=== PATIENT | female | born 1950 | race Caucasian/White ===

== ENCOUNTER → 2017-05-12 | Outpatient (CLI) | payer MEDICARE, OTHER ==
[~2017-05-12] MED LIST: ASPIR 8181 M1 PO; EFFEXOR XR75 MG PO; POTASSIUM20 PO; PROTONIX40 M1 PO; SYNTHROID75 MCG PO; XANAX 0.25 MG0.25 MG PO; ZESTORETIC 10-1 EACH PO
== END ==
LOC: M.CT 12:45
DX: D17.71 Benign lipomatous neoplasm of kidney (principal); M47.896 Other spondylosis, lumbar region; Z90.710 Acquired absence of both cervix and uterus; Z90.49 Acquired absence of other specified parts of digestive tract

== ENCOUNTER 2017-06-18 11:31 | Inpatient (IN) | payer MEDICARE, OTHER ==
[~2017-06-18] VITALS: Ht 160 cm; Wt 69.9 kg
[~2017-06-18 11:31] MED LIST changes: -ASPIR 8181 M1 PO; -EFFEXOR XR75 MG PO; -PROTONIX40 M1 PO; -SYNTHROID75 MCG PO; -XANAX 0.25 MG0.25 MG PO; -ZESTORETIC 10-1 EACH PO
[2017-06-18 11:37] VITALS: BP 130/81
[2017-06-18] MEDS ORDERED: PROTONIX40 M1 PO (11:44)
[2017-06-18] MEDS ORDERED: ZESTORETIC 10-1 EACH PO (11:45)
[2017-06-18] MEDS ORDERED: SYNTHROID75 MCG PO (11:45)
[2017-06-18] MEDS ORDERED: EFFEXOR XR75 MG PO (11:45)
[2017-06-18 12:30] LABS: URINE BILIRUBIN NEGATIVE (Negative); URINE BLOOD NEGATIVE (Negative); URINE CLARITY CLEAR; URINE COLOR YELLOW; URINE GLUCOSE-RANDOM NEGATIVE (Negative); URINE KETONES NEGATIVE (Negative); URINE LEUKOCYTES-REFLEX NEGATIVE (Negative); URINE NITRITE-REFLEX NEGATIVE (Negative); URINE PROTEIN NEGATIVE (Negative); URINE SPECIFIC GRAVITY <= 1.005 (1.005-1.030); URINE UROBILINOGEN 0.2 E.U./dl (0.2-1.0)
[2017-06-18 12:35] LABS: BE 1.2 mmol/L (-2 to +3); PCO2 32.5 mmHg (35.0-45.0); PO2 120.5 mmHg (75.0-100.0); pH 7.486 (7.340-7.450)
[2017-06-18 12:38] LABS: ABSOLUTE EOSINOPHILS 0.1 thou/uL (0.0-0.7); ABSOLUTE LYMPHOCYTES 1.2 thou/uL (0.8-5.3); ABSOLUTE MONOCYTES 0.6 thou/uL (0.0-1.2); ABSOLUTE NEUTROPHILS 6.9 thou/uL (1.6-8.1); BASOPHILS 0.5 %; EOSINOPHILS 1.2 %; HEMATOCRIT 39.9 % (37.0-47.0); HEMOGLOBIN 13.5 gm/dL (12.0-15.0); LYMPHOCYTES 13.3 %; MCH 28.8 pg (26.0-34.0); MCHC 33.8 g/dL (28.0-37.0); MCV 85.2 fL (80.0-100.0); MONOCYTES 7.3 %; MPV 8.5 fl. (7.2-11.1); NUCLEATED RBCS 0 /100WBC; PLATELET COUNT* 185 thou/uL (150-400); POLYS 77.7 %; RBC 4.68 mil/uL (4.20-5.00); RDW-CV 13.7 % (10.5-14.5); WBC 8.9 thou/uL (4.0-11.0)
[2017-06-18 12:51] LABS: ANION GAP 10 mmol/L (7-16); BUN 15 mg/dL (7-18); CALCIUM 9.6 mg/dL (8.5-10.1); CHLORIDE 93 mmol/L (98-107); CO2 31 mmol/L (21-32); CREATININE 0.9 mg/dL (0.6-1.3); GLUCOSE 98 mg/dL (70-99); SODIUM 134 mmol/L (136-145)
[2017-06-18 12:55] LABS: AMP/METHAMP Negative (Negative); BARBITURATES Negative (Negative); BENZODIAZEPINES Negative (Negative); COCAINE Negative (Negative); METHADONE Negative (Negative); OPIATES Negative (Negative); PCP Negative (Negative); THC Negative (Negative)
[2017-06-18 12:57] LABS: ALBUMIN 3.7 g/dL (3.4-5.0); ALKALINE PHOSPHATASE 124 U/L (46-116); NT-PRO BRAIN NAT PEPTIDE 317 pg/mL (<300); SGOT 25 U/L (15-37); SGPT 40 U/L (30-65); TOTAL BILIRUBIN 0.5 mg/dL (<0.1-1.0); TOTAL PROTEIN 7.3 g/dL (6.4-8.2); TROPONIN-I LEVEL <0.06 ng/mL (<0.06)
[2017-06-18 12:58] LABS: POTASSIUM 2.6 mmol/L (3.5-5.1)
[2017-06-18 14:16] VITALS: BP 106/58
[2017-06-18] MEDS ORDERED: POTASSIUM20 PO (14:39)
[2017-06-18] MEDS ORDERED: XANAX 0.25 MG0.25 MG PO (14:39)
--- NOTE | 2017-06-18 18:09 | NUR ---
PT ADMITTED FROM ER WITH SYNCOPE FELL AT HOME AND BROKE CABINET K+ LOW RUNNING IV 10ML/H GOODMAN VEIN BADLY PER PT IV FLUIDS CONT AT 100ML/H C/O HEADACHE ENCOURAGED FLUIDS PT DRINKS DIET COKE MAINLY SBA IV TO RAC NSR ON THE MONITOR PACS AT TIMES PER ER 60S-70S ALERT AND ORIENTED FORGETFUL AT TIMES FAMILY AT BEDSIDE
[2017-06-18 20:20] VITALS: BP 104/57
[2017-06-19] VITALS (7 sets, daily range): BP systolic 95–136; BP diastolic 56–76
--- NOTE | 2017-06-19 03:39 | NUR ---
ASSUMED CARE AT 1999, ASSESSMENT CHARTED. PATIENT ALERT/ORIENTED X4, FORGETFUL AT TIMES, RESTING IN BED WITH FAMILY AT BEDSIDE. UP WITH STANDBY ASSIST. DENIES PAIN OR NEEDS. ORTHOSTATICS PER DAY RN WERE NEGATIVE. BED ALARM ON. REFUSING SCD'S. CALL LIGHT WITHIN REACH, ENCOURAGED TO CALL FOR NEEDS.
[2017-06-19 04:37] LABS: ABSOLUTE EOSINOPHILS 0.2 thou/uL (0.0-0.7); ABSOLUTE MONOCYTES 0.6 thou/uL (0.0-1.2); ABSOLUTE NEUTROPHILS 3.4 thou/uL (1.6-8.1); BASOPHILS 0.6 %; EOSINOPHILS 2.5 %; HEMATOCRIT 36.2 % (37.0-47.0); HEMOGLOBIN 12.3 gm/dL (12.0-15.0); LYMPHOCYTES 32.2 %; MCH 28.8 pg (26.0-34.0); MCHC 34.1 g/dL (28.0-37.0); MCV 84.5 fL (80.0-100.0); MONOCYTES 9.2 %; MPV 8.7 fl. (7.2-11.1); NUCLEATED RBCS 0 /100WBC; PLATELET COUNT* 161 thou/uL (150-400); POLYS 55.5 %; RBC 4.28 mil/uL (4.20-5.00); RDW-CV 13.4 % (10.5-14.5); WBC 6.1 thou/uL (4.0-11.0)
[2017-06-19 05:20] LABS: CALCIUM 8.9 mg/dL (8.5-10.1); CREATININE 0.8 mg/dL (0.6-1.3); MAGNESIUM 1.9 mg/dL (1.8-2.4); POTASSIUM 3.7 mmol/L (3.5-5.1)
--- NOTE | 2017-06-19 13:04 | NUR ---
CM ASSESSMENT: Pt is A&O. Resides at home with her . Supportive family that is involved in POC. No DME. No hx of HH or SNF. Independent with ADLS. No needs anticipated at dc. CM following. Stress test and Echo planned.
--- NOTE | 2017-06-19 14:01 | NUR ---
ASSUMED CARE OF PT AT 0730. PT RESTING IN BED. PT A&0X4, FORGETFUL. PT DENIES ANY PAIN OR SHORTNESS OF BREATH AT THIS TIME. PT NPO FOR CARDIOLOGY CONSULT THIS AM. FAMILY AT BEDSIDE. PT TRACING SR ON THE DIRECTOR OF STUDENT SERVICES. PT ON 1L NC SAT 98%. PT COMPLAINS OF PRODUCTIVE COUGH. SPUTUM NOT OBSERVED. WHEEZES NOTED. IVF. PT UP WITH 1 SBA TO BATHROOM. PT DENIES ANY DIZZINESS WITH AMBULATION. PT GOAL FOR TODAY IS TO BE SEEN BY CARDIOLOGY AND NEUROLOGY AND REMAIN FREE FROM FALLS AND SYNCOPAL EPISODES. AM ASSESSMENT CHARTED. MEDICATIONS PER MAY. PT REPOSITIONS SELF. HOURLY ROUNDING OBSERVED. BED IN LOW POSITION. BED ALARM IN PLACE. FALL PRECAUTIONS IN PLACE. CALL LIGHT WITHIN REACH. WILL CONTINUE PLAN OF CARE.
--- NOTE | 2017-06-19 14:15 | 2DMMODE ---
[place] [address] 2 D/M-MODE ECHOCARDIOGRAM Name: LORELEI ROMERO Room: [address] IN [facility]#: [id number] Admission: 06/18/17 Attend Phys: Joaquín Chris, Discharge: Date of : 54 Date of Service: 06/19/17 1415 Report #: [id number] THIS REPORT FOR: //name// APPROVED REPORT Study performed: 06/19/2017 11:42:16 EXAM: Comprehensive 2D, Doppler, and color-flow Echocardiogram Patient Location: In-Patient Room #: 220 Status: routine BSA: 1.71 HR: 64 bpm BP: 136/76 mmHg Rhythm: NSR Other Information Study Quality: Good Indications Syncope 2D Dimensions LVEF(%): 71.44 (>50%) IVSd: 8.47 (7-11mm) LVOT Diam: 18.45 (18-24mm) LVDd: 41.74 mm PWd: 8.59 (7-11mm) Ascending Ao: 26.78 (22-36mm) LVDs: 24.91 (25-40mm) Aortic Root: 29.24 mm Posey's LVEF: 71.44 % Volumes Left Atrial Volume (Systole) LA ESV Index: 25.00 mL/m2 Aortic Valve AoV Peak Agustín.: 1.56 m/s AO Peak Gr.: 9.71 mmHg LVOT Max P.20 mmHg AO Mean Gr.: 5.53 mmHg LVOT Mean P.02 mmHg LVOT Max V: 1.34 m/s AO V2 VTI: 28.13 cm LVOT Mean V: 0.78 m/s ALAN (VTI): 2.48 cm2 LVOT V1 VTI: 26.04 cm AI Stokes: 2.43 m/s2 AI PHT: 477.56 [place] [address] 2 D/M-MODE ECHOCARDIOGRAM Name: LORELEI ROMERO Room: [address] IN [facility]#: [id number] Admission: 06/18/17 Attend Phys: Joaquín Chris, Discharge: Date of : 54 Date of Service: 06/19/17 1415 Report #: [id number] Mitral Valve E/A Ratio: 1.23 MV Decel. Time: 203.61 ms MV E Max Agustín.: 0.97 m/s MV PHT: 59.05 ms MVA (PHT): 3.73 cm2 TDI E/Lateral E': 8.08 E/Medial E': 8.82 Medial E' Agustín.: 0.11 m/s Lateral E' Agustín.: 0.12 m/s Pulmonary Valve PV Peak Agustín.: 0.80 m/s PV Peak Gr.: 2.56 mmHg Tricuspid Valve TR Peak Gr.: 22.03 mmHg RVSP: 27.00 mmHg Left Ventricle The left ventricle is normal size. There is normal LV segmental wall motion. There is normal left ventricular wall thickness. Left ventricular systolic function is normal. The left ventricular ejection fraction is within the normal range. LVEF is 55-60%. The left ventricular diastolic function is normal. Right Ventricle The right ventricle is normal size. The right ventricular systolic function is normal. Atria The left atrium size is normal. The right atrium size is normal. Aortic Valve Mild aortic valve sclerosis. Mild aortic regurgitation. There is no aortic valvular stenosis. Mitral Valve The mitral valve is normal in structure. Trace mitral regurgitation. No evidence of mitral valve stenosis. Tricuspid Valve The tricuspid valve is normal in structure. Mild tricuspid regurgitation. The RVSP is ___27____ mmHg[place] [address] 2 D/M-MODE ECHOCARDIOGRAM Name: LORELEI ROMERO Room: [address] IN [facility]#: [id number] Admission: 06/18/17 Attend Phys: Joaquín Chris, Discharge: Date of : 54 Date of Service: 06/19/17 1415 Report #: [id number] The pulmonary valve is normal in structure. Mild pulmonic regurgitation. Great Vessels The aortic root is normal in size. IVC is normal in size and collapses with >50% inspiration Pericardium There is no pericardial effusion. <Conclusion> The left ventricle is normal size. There is normal left ventricular wall thickness. Left ventricular systolic function is normal. The left ventricular ejection fraction is within the normal range. LVEF is 55-60%. The left ventricular diastolic function is normal. The right ventricle is normal size. The left atrium size is normal. Mild aortic valve sclerosis. Mild aortic regurgitation. There is no aortic valvular stenosis. The mitral valve is normal in structure. Trace mitral regurgitation. The tricuspid valve is normal in structure. Mild tricuspid regurgitation. The RVSP is ___27____ mmHg. IVC is normal in size and collapses with >50% inspiration There is no pericardial effusion. There is normal LV segmental wall motion. <ELECTRONICALLY SIGNED> By: Jonas Moise MD, FACC 06/19/17 1415 14 141 Jonas Moise MD, FACC /INF
--- NOTE | 2017-06-19 14:44 | EKG ---
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 06/19/17 1444 1141 1141 Jonas Moise MD, FACC /EPI
--- NOTE | 2017-06-19 17:16 | CARDNUC ---
[place] [address] CARDIAC NUCLEAR IMAGING REPORT Name: LORELEI ROMERO Room: [address] IN [facility]#: [id number] Admission: 06/18/17 Attend Phys: Joaquín Chris, Discharge: Date of : 54 Date of Service: 06/19/17 1716 Report #: [id number] THIS REPORT FOR: //name// APPROVED REPORT Study performed: 06/19/2017 09:39:00 Exam: Nuclear Stress Test Indication: Syncope, Chest pain Patient Location: In-Patient Room #: 220 Stress Tech: Luz Agustin Stress Nurse: Ellen Pan RN Ht: 5 ft 3 in Wt: 165 lbs BSA: 1.78 m2 BMI: 29.22 Medical History Medical History: CAD s/p CABG, HTN, Hyperlipidemia Medications: hydralazine Allergies: No known drug allergies Previous Cardiac Procedures: CABG Exercise History: Sedentary Stress Test Details Stress Test: Pharmacologic stress testing performed using 0.4 mg of regadenoson per 5 mL given IV over 10 seconds. Reason for pharmacologic stress test: physical limitation. HR Resting HR: 70 bpm Max Heart Rate (APMHR): 156 bpm Max HR Achieved: 100 bpm Target HR (85% APMHR): 132 bpm % of APMHR: 64 Recovery HR: 92 bpm BP Resting BP: 120/70 mmHg Max BP: 123/61 mmHg ECG Resting ECG: Sinus Rhythm, normal EKG Stress ECG: Sinus Rhythm, normal EKG ST Change: None Arrhythmia: None Recovery ECG: Sinus Rhythm, [place] [address] CARDIAC NUCLEAR IMAGING REPORT Name: LORELEI ROMERO Room: [address]#: [id number] Admission: 06/18/17 Attend Phys: Joaquín Chris, Discharge: Date of : 54 Date of Service: 06/19/17 1716 Report #: [id number] Change: None Recovery Arrhythmia: None Clinical Reason for Termination: Completed protocol Stress Symptoms: None Exercise duration: 0 min sec Exercise capacity: 1.0 METs The patient had no significant symptoms with Lexiscan infusion. Stress ECG Conclusion The baseline 12-lead electrocardiogram showed normal sinus rhythm with no significant ST or T wave abnormalities. EKGs obtained during and post Lexiscan infusion show sinus rhythm with no cement ST or T wave changes when compared to baseline. There were no stress-induced arrhythmias. NM EXAM: Myocardial Perfusion REST/STRESS Imaging Protocol: Rest Tc-99m/Stress Tc-99m 1 day Resting Data Rest SPECT myocardial perfusion imaging was performed in supine position 30 minutes following the intravenous injection of 11.3 mCi of Tc-99m Sestamibi. Time of rest injection: 14:20 Time of rest imagin:50 The images were gated to evaluate regional wall motion and calculate left ventricular ejection fraction. Administration Route: IV Administration Site: Right AC Pharmacologic Stress Pharmacologic stress test was performed by injecting Regadenoson 0.4 mg IV push followed by the intravenous injection of 36.0 mCi of Tc-99m Sestamibi. Time of stress injection: 15:40 Time of stress imagin:35 Administration Route: IV Administration Site: Right AC Heart Rate at time of stress injection: 100 bpm. Gated Stress SPECT was performed 55 minutes after stress injection. The images were gated to evaluate regional wall motion and calculate left [place] [address] CARDIAC NUCLEAR IMAGING REPORT Name: NICKLORELEI Almita Room: [address]#: [id number] Admission: 06/18/17 Attend Phys: Joaquín Chris, Discharge: Date of : 54 Date of Service: 06/19/17 1716 Report #: [id number] Study Quality Study: Good Artifact: No artifact Study Data At rest, the left ventricular ejection fraction was 74%.. Post stress, the left ventricular ejection was 65%.. TID = 1.13. Perfusion Normal left ventricular perfusion. Wall Motion Normal left ventricular wall motion. Nuclear Conclusion ECG Findings: negative for ischemia Clinical Findings: negative for ischemia Nuclear Findings: negative for ischemia Exercise Capacity: not assessed Left Ventricular Function: normal Risk Study: low Myocardial perfusion images show no defect to suggest infarct or ischemia. Left ventricular systolic function was normal on gated studies. This is a low risk study. <Conclusion> The baseline 12-lead electrocardiogram showed normal sinus rhythm with no significant ST or T wave abnormalities. EKGs obtained during and post Lexiscan infusion show sinus rhythm with no cement ST or T wave changes when compared to baseline. There were no stress-induced arrhythmias. <ELECTRONICALLY SIGNED> By: Milan Chou MD, FACC 06/19/17 1716 15 15 Milan Chou MD, FACC /INF
--- NOTE | 2017-06-19 18:33 | NUR ---
Patient stress test negative, echo showed 55-60% ef. MRI and MRA negative for acute changes. Chest xray negative. Patient placed on room air. No acute changes. EEG for 06/20/2017. Patient family requesting GI consult do to history of diarrhea. No stools observed this shift. Hourly rounding observed. Call within reach, bed in low ponsition, bed alerm placed.
--- NOTE | 2017-06-19 18:48 | NUR ---
THIS RN AGREES WITH THE CHARTING AND ASSESSMENT COMPLETED BY BLAYNE NOLEN ON 06/19/17.
[2017-06-20 00:11] VITALS: BP 132/75
[2017-06-20 04:00] VITALS: BP 131/69
--- NOTE | 2017-06-20 05:12 | NUR ---
ASSUMED CARE AT 1999, ASSESSMENT CHARTED. PATIENT ALERT/ORIENTED X4, FORGETFUL AT TIMES, RESTING IN BED WITH FAMILY AT BEDSIDE. UP WITH STANBDY ASSIST TO BATHROOM. DENIES PAIN OR NEEDS. REFUSING SCD'S. MEDS PER MAY. BED ALARM ON. FALL PRECAUTIONS IN PLACE. CALL LIGHT WITHIN REACH, ENCOURAGED TO CALL FOR NEEDS.
--- NOTE | 2017-06-20 05:30 | NUR ---
BED ALARM SOUNDING. PATIENT ATTEMPTING TO GET OUT OF BED, STAFF AT SIDE. PATIENT HANDED STAFF HER BRACELETS, COBAN FROM IV SITE, AND SOCKS. BRACELETS REPLACED. ASSISTED TO BATHROOM AND BACK TO BED. BED ALARM REPLACED. WILL MONITOR.
[2017-06-20 05:33] LABS: ABSOLUTE EOSINOPHILS 0.2 thou/uL (0.0-0.7); ABSOLUTE LYMPHOCYTES 1.7 thou/uL (0.8-5.3); ABSOLUTE MONOCYTES 0.6 thou/uL (0.0-1.2); ABSOLUTE NEUTROPHILS 3.1 thou/uL (1.6-8.1); BASOPHILS 0.3 %; EOSINOPHILS 2.9 %; HEMATOCRIT 32.4 % (37.0-47.0); HEMOGLOBIN 11.2 gm/dL (12.0-15.0); LYMPHOCYTES 30.5 %; MCH 29.2 pg (26.0-34.0); MCHC 34.6 g/dL (28.0-37.0); MCV 84.3 fL (80.0-100.0); MONOCYTES 10.7 %; MPV 8.7 fl. (7.2-11.1); NUCLEATED RBCS 0 /100WBC; PLATELET COUNT* 148 thou/uL (150-400); POLYS 55.6 %; RBC 3.85 mil/uL (4.20-5.00); RDW-CV 13.8 % (10.5-14.5); WBC 5.5 thou/uL (4.0-11.0)
[2017-06-20 05:50] LABS: ALBUMIN 2.9 g/dL (3.4-5.0); CALCIUM 8.5 mg/dL (8.5-10.1); CREATININE 0.8 mg/dL (0.6-1.3); POTASSIUM 3.6 mmol/L (3.5-5.1); TOTAL BILIRUBIN 0.2 mg/dL (<0.1-1.0); TOTAL PROTEIN 5.5 g/dL (6.4-8.2)
[2017-06-20 07:50] LABS: ESR (SEDRATE) 32 mm/hr (0-30)
[2017-06-20 08:00] VITALS: BP 150/63
--- NOTE | 2017-06-20 08:10 | NUR ---
PATIENT RESTED OFF AND ON THROUGH THE NIGHT. BEDSIDE REPORT GIVEN. NOW AT SIDE. BED ALARM ON. WILL MONITOR.
[2017-06-20 09:47] VITALS: BP 131/69
[2017-06-20] MEDS ORDERED: ASPIR 8181 M1 PO (11:07)
--- NOTE | 2017-06-20 12:12 | NUR ---
ASSUMED PATIENT CARE THIS AM. RECEIVED REPORT FROM NURSE. PATIENT IS ALERT ORIENTED X4. VITALS WITHIN NORMAL LIMIT. COMPLIANT OF PAIN LEVEL OF 7 HEADACHE. PAIN MEDICATION TO BE PROVIDED. POSSIBLE DISCHARGE TODAY. PATIENT DOES NOT STATE ANY COMPLAIN BESIDE PAIN. FAMILY MEMBER IS AT BEDSIDE. WILL CONTINUE TO MONITOR
--- NOTE | 2017-06-20 13:13 | NUR ---
PT COMPLAINED OF HEADACHE THIS AM. TREATED WITH PRN TYLENOL WITH RELIEF. PT HAD EEG THIS AM. DISCHARGE ORDERS RECEIVED. DISCHARGE INSTRUCTIONS, CARE NOTES AND FOLLOW UP APPTS GIVEN TO PT. PT COMMUNICATES UNDERSTANDING OF DISCHARGE TEACHING. IV AND VICE PRESIDENT INTEGRATED REMOVED. PT DISCHARGED WITH ALL BELONGINGS AND PAPERWORK VIA WHEELCHAIR AND NURSING STAFF TO SPOUSE OWN PERSONAL VEHICLE.
--- NOTE | 2017-06-20 13:17 | NUR ---
THIS RN AGREES WITH THE CHARTING AND ASSESSMENT COMPLETED BY JADEN PAREKH ON 06/20/17.
--- NOTE | 2017-06-22 19:10 | CON ---
[address] [address] CONSULTATION Name: LORELEI ROMERO Room: [address] IN ..#: [id number] Admission: 06/18/17 Attend Phys: Joaquín Chris MD Discharge: 06/20/17 Date of : 54 Report #: [id number] THIS REPORT FOR: //name// CC: Joaquín [place] DATE OF SERVICE: 06/19/2017 HISTORY OF PRESENT ILLNESS: This is a 66-year-old female patient who was evaluated by me to determine any neurological etiology for the patient's episode of syncope. The patient was apparently doing something in the that felt dizzy and passed out. Throughout this, she was fully conscious. In fact, she was able to talk to the . She had no jerking movements. There was no well-defined postictal period. Blood pressure and pulse was not taken at that time and the did not allow the to call the ambulance. When the blood pressure was taken, it was low. She indicates she does take antihypertensive, but take her blood pressure only every couple of weeks. REVIEW OF SYSTEMS: Indicate that this patient was admitted with hypokalemia. That has improved. She also has some history of palpitation. thinks the memory, especially the short-term memory is deteriorating. She is pretty anxious and takes medication for that. She has always been anxious. She denies any history of stroke, but does have a history of coronary artery disease and had a bypass surgery. She had a prior history of knee surgery. 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 Her last B12 level was 296, which is somewhat on the lower side. She feels back to her baseline and she does not believe that she has any new eye, ENT, respiratory, GI, , musculoskeletal, constitutional, dermatological, hematological, throat, allergic or endocrine symptoms associated with present symptomatology. She does have a history of anxiety and depression as mentioned above. PAST MEDICAL HISTORY: Initially she said is negative for syncope, but then she said she had an MRI done about 2 months ago and that was because of memory, headache. Past medical history is positive for some memory disturbances. FAMILY HISTORY: Negative for early age stroke. SOCIAL HISTORY: She drinks alcohol very rarely and she does not smoke. PHYSICAL EXAMINATION: Indicate she is alert. She is responsive. She is oriented. Her speech, concentration, fund of knowledge and memory is at her baseline. Cranial nerve examination 2-12 looks unremarkable. She has no papilledema. There is no carotid bruit. Her strength, sensation, reflexes and tones are symmetrical. There is no cerebellar sign. No papilledema. She is a reasonably well-developed individual. She does not have any dysmorphic features of eyes, ears and face. Her visions and hearing looks [place] [address] CONSULTATION Name: LORELEI ROMERO Room: [address]#: [id number] Admission: 06/18/17 Attend Phys: Joaquín Chris MD Discharge: 06/20/17 Date of : 54 Report #: [id number] thyroid mass. Cardiac examination clinically does not show any definite abnormality of the heart sounds or murmur. No respiratory difficulty or rhonchi was noticed on either side. Her pulses are palpable. She has no edema, cyanosis or jaundice. Her blood pressure was 121/61, respiration was 14, pulse is 71, temperature is 97.9. She did have a CT scan of the head and carotid Doppler. Carotid Doppler showed mild disease. CT was okay and she did have MRIs in the past, but not at this time. IMPRESSION: I suspect the patient's symptoms were secondary to either cardiac or systemic or both problems. She was markedly hypokalemic and her blood pressure was low. I suspect that is probably the cause of her symptoms. Neurological etiology is considered unlikely, but she is having memory disturbances and had headaches. Because of that, we will do some workup in this patient by repeating the MRI. I will also go ahead and check a sed rate in this patient. Neurological causes are considered unlikely, but these will exclude that. I discussed all of it with the patient and the patient wants to proceed with it. RECOMMENDATIONS: 1. EEG. 2. Sed rate. 3. MRI of the brain. 4. MRA of the head. 5. If this workup is unremarkable, that will make it even less likely that there is any neurological etiology for the patient's symptoms and we should continue to work on finding any systemic cause. Thank you very much for this referral. We will follow this patient with you from tomorrow. <ELECTRONICALLY SIGNED> By: Suleiman Edmonds MD 06/22/17 1910 1423 [id number] Edmonds MD /nt
--- NOTE | 2017-06-22 19:10 | EEG ---
[address] [address] EEG STUDY REPORT Name: LORELEI ROMERO Almita Room: [address] IN .#: [id number] Admission: 06/18/17 Attend Phys: Joaquín Chris MD Discharge: 06/20/17 Date of : 54 Report #: [id number] THIS REPORT FOR: //name// CC: Joaquín Brockbabs DATE OF SERVICE: 06/20/2017 This patient is being evaluated for syncope and the EEG was done by placing the electrodes by standard 10-20 system of electrode placement. Both referential and sequential montages were used for recording. Background activity in this patient's EEG is about 9 Hz and 30 microvolt. This patient became drowsy. It does associate with bilateral slowing and vertex sharp waves. Photic stimulation was unremarkable. Throughout the record, no active epileptiform activity was noticed. IMPRESSION: This patient's EEG is within normal limit. Thank you very much for this referral. <ELECTRONICALLY SIGNED> By: Suleiman Edmonds MD 06/22/17 1910 1816 [id number] Edmonds MD /nt
== END 2017-06-20 12:08 | disposition home or self-care (01) | DRG 315 ==
LOC: M.ERS 11:31 → M.TBA-ER 13:54 → M.2W 13:54
PROVIDERS: Personal Emergency Response Attendant; ADMIT Internal Medicine
DX: I95.9 Hypotension, unspecified (principal); E87.1 Hypo-osmolality and hyponatremia; E86.0 Dehydration; I10 Essential (primary) hypertension; E87.6 Hypokalemia; I25.10 Atherosclerotic heart disease of native coronary artery without angina pectoris; T50.2X5A Adverse effect of carbonic-anhydrase inhibitors, benzothiadiazides and other diuretics, initial encounter; Y92.89 Other specified places as the place of occurrence of the external cause; Z98.42 Cataract extraction status, left eye; Z98.41 Cataract extraction status, right eye; Z95.1 Presence of aortocoronary bypass graft; Z79.899 Other long term (current) drug therapy; Z72.89 Other problems related to lifestyle